=== PATIENT | female | born 1955 | race Two or more races ===

== ENCOUNTER 2025-05-12 09:29 | Outpatient (AMB) | payer OTHER, SELFPAY ==
--- NOTE | 2025-05-12 09:48 | MHC.OFFVIS ---
Vital Signs 05/12/25 09:56 Height 5 ft 7 in Weight 173 lb BMI 27.1 BP 112/68 Blood Pressure Location Rt brachial Position Sitting Respiration 16 Pulse 93 Pulse Source Pulse Oximeter Pulse Oximetry (%) 97 Oxygen Delivery Method Room Air Intake Visit Reasons: Seizure Farm Equipment Service Technician Required: Yes Farm Equipment Service Technician Name: Mckay Ryan ID: [id number] Information Interpreted: non-clinical & clinical Allergies celecoxib (From Celebrex) Allergy (Unknown, Verified 05/12/25 10:00) Unknown duloxetine Allergy (Unknown, Verified 05/12/25 10:00) Unknown metoclopramide (From Reglan) Allergy (Unknown, Verified 05/12/25 10:00) Unknown ondansetron (From Zofran) Allergy (Unknown, Verified 05/12/25 10:00) Unknown topiramate Allergy (Unknown, Verified 05/12/25 10:00) Unknown Medication List - Last Reconciled 05/12/25 by Zahra Loera, [place] aspirin 81 mg PO DAILY clonazepam 1 mg PO BID PRN diclofenac sodium 1% 1 ea topical QID fluticasone propion-salmeterol 500-50 mcg/dose (Wixela Inhub) inhalation folic acid 1 mg PO DAILY lacosamide mg PO losartan 50 mg PO DAILY metformin 500 mg PO BID montelukast 10 mg PO DAILY oxycodone 5 mg PO QID PRN rimegepant (Nurtec ODT) 75 mg PO Q OTHER DAY risperidone 4 mg PO BEDTIME simvastatin 40 mg PO BEDTIME temazepam 15 mg PO BEDTIME PRN HPI Comments Details: Jessica is a 69 year female patient with a past medical history of diabetes, migraine, possible seizures presenting to the clinic today for a follow-up visit. I have seen this patient at [facility] in the past. At the time of our visit together at [facility] in June of 2024, the reviewed her prior workup which included normal EEGs in February of 2022 and in February of 2023. She was however on Vimpat 200 mg twice daily in the plan has been to taper these medications as recommended by Dr. Brewer. 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 MRI imaging of the brain 02/16/2022 was also normal. She had seen me in June of 2024 for headache evaluation with headaches starting years ago on a daily basis described as right-sided occipital and parietal with some shoulder involvement. Headaches were associated with nausea and shaking and spots in her vision. Headaches would last over 4 hours and Nurtec was marginally effective. She was still taking the Vimpat 200 mg which has been recently decreased. Her seizure-like events were in the setting of extreme stress and during this office visit, I was able to elicit a similar response with hyperventilation. I had recommended tapering down on the lacosamide and to start a trial of topiramate 50 mg at bedtime for headache. It appeared however that she tried the topiramate which caused dizziness and it was self-discontinued. She saw Dr. Kline in January of 2025 at which time she had experienced some episodes of decreased level of awareness and CT head was negative for acute intracranial bleeding and CTA showed no large vessel occlusion or high degree of stenosis. It was determined that stroke or seizure activity were both very unlikely and that more than likely her symptoms work behavioral. She is here today to establish care. She tells me that she is here today for management of her epilepsy. She tells me that she continues to take vimpat 200mg twice daily. She tells me that she continues to have seizure episodes occurring 3 times per week but she can sometimes go 2 months without them. She describes them as shaking episodes when she bites her tongue. She is sometimes aware when she has these episodes. She also notes memory difficulty and extreme forgetfullness. She tried the topiramate but it caused dizziness and she self discontinued this medication. She continues to have daily pulsating right sided headaches to the occipital area radiating in the the neck and right shoulder. She is taking temazepam at bedtime and reports that her sleep can still be poor. She has tried flezaril in the past but this caused oversedation. Sleep: She does not believe that she has had a sleep study in the past but reports poor sleep quality and snoring. [facility] Medical History (Updated 05/12/25 @ 13:13 by Zahra Loera CNP) Osteoarthritis of knees, bilateral Seizure disorder Migraine without aura Hypertension GERD (gastroesophageal reflux disease) Fibromyalgia Chronic depression Celiac disease Asthma Anxiety Alopecia Review of Systems Const All systems reviewed & are unremarkable except as noted in HPI and below Physical Exam Const General: cooperative, healthy appearing, comfortable and no acute distress Nutritional Appearance: well nourished Orientation/consciousness: patient oriented x3 Limitations: no limitations HEENT Head: Yes normal to inspection and Yes normocephalic Eyes General: appearance normal, both eyes and all related structures Visual Maciel: normal visual maciel by confrontation Alignment and Position: alignment normal Periorbital: periorbital findings normal Eyelids: Yes eyelids normal Conjunctivae: conjunctivae normal Sclerae: sclerae normal Back/Spine/Pelvis Other: Right sided trigger point injection to the upper trapezius area. Neuro General: patient oriented x3, tone normal and deep tendon reflexes 2+ bilaterally Cranial nerves: Yes CN's II-XII intact bilaterally and Yes Facial sensation intact/muscles of mastication intact Cognition (Neuro): normal cognition Gait exam (Neuro): Normal gait present Motor exam (neuro): 5/5 motor strength present throughout and no tremor noted Sensory Exam: double simultaneous stimulation for sensation normal Romberg Test: Negative Pupils: Normal pupillary reactivity/response: bilateral Psych Appearance: grossly normal Affect: Sad affect present (tearful at times) and Animated affect present Attitude: cooperative Insight: Fair insight present (Psych) Judgement: Fair judgement present (Psych) Assessment & Plan Assessment & Plan (1) Non-epileptic convulsion: Code(s): R56.9 - Unspecified convulsions Category: Medical (2) Right-sided headache: Code(s): R51.9 - Headache, unspecified Category: Medical (3) Poor sleep: Code(s): Z72.820 - Sleep deprivation Category: Medical (4) Concern about memory: Code(s): R41.89 - Other symptoms and signs involving cognitive functions and awareness Category: Medical (5) Fatigue: Code(s): R53.83 - Other fatigue Category: Medical Plan Jessica is a 69 year female patient with a past medical history of diabetes, migraine, possible seizures presenting to the clinic today for a follow-up visit. Seizure episodes: Continues to have relatively frequent seizure-like episodes on Vimpat 200 mg twice daily. The goal in the past has been to reduce the dose as her EEGs have been normal and has been suggestive of PNES. My prior evaluation at [facility] also revealed reproduction of her symptoms with hyperventilation causing panic attack in the office. I am recommending that we dropped on the Vimpat to 100 mg twice daily to see if we can reduce some of her other symptoms including imbalance, memory concerns, and dizziness as well as fatigue. Sleep: Reports that her sleep is very poor. It is not clear whether or not she snores but she does have very fragmented sleep. I am recommending a sleep study to evaluate for TAYO which can cause changes in memory as well as fatigue. Headaches: She continues to have right-sided headaches with some obvious trigger points on exam of the right trapezius muscle. I am recommending trigger point injections as to not add to her polypharmacy/daily medication intake. The -taper down on vimpat to 100mg twice daily -sleep study in-lab -Right trapezius trigger points - PA needed Orders: Orders RT PSG in-lab sleep study Today R41.89 - Other symptoms and signs involving cognitive functions and awareness, R53.83 - Other fatigue, Z72.820 - Sleep deprivation Medications: New lacosamide 100 mg PO BID 60 tabs 5RF 30 days Coding Level of Care Code Est Pt Level 4 (30588) Diagnoses Non-epileptic convulsion R56.9 Right-sided headache R51.9 Poor sleep Z72.820 Concern about memory R41.89 Fatigue R53.83
[2025-05-12 09:56] VITALS: BP 112/68; PULSE 93; RESP 16; O2SAT 97; BMI 27.1
--- OUTSIDE RECORDS SUMMARY | 2025-05-12 17:27 | XMS_ITS | Encounter Summary ---
Author Organization [facility] Address [address] [place] [address] Care Team Providers Care Crane Helper Name Role Phone Sofi Motley MD Primary Care Provider [phone] Encounter Details Date Type Department Care Team (Late st Contact Info) Description 09/21/2020 Scanned Document [facility] Medical [facility] Rheumatology [place] [address] [facility] [address] [place] [address] Chase Coronado MD [address] [place] [id number] Social History Tobacco Use Types Packs/Day Years Used Date Smoking Tobacco: Former Cigarettes 1 20 Smokeless Tobacco: Never Alcohol Use Standard Drinks/Week Comments Not Currently 0 (1 standard drink = 0.6 oz pur e alcohol) Comments Unknown Sex and Gender Information Value Date Recorded Sex Assigned at Not on file Legal Sex Female 10:45 AM EDT Gender Identity Not on file Sexual Orientation Not on file COVID-19 Exposure Response Date Recorded In the last month, have you been in contact with someone who was confirmed or suspected to have Coronavirus / COVID-19? No / Unsure 09/21/2020 11:27 AM EDT documented as of this encounter Plan of Treatment Not on file documented as of this encounter Visit Diagnoses Not on filedocumented in this encounter Care Teams Crane Helper Relationship Specialty Start Date End Date Sofi Motley MD [address] [place] [address] PCP - General Internal Medicine 09/21/20 documented as of this encounter
--- OUTSIDE RECORDS SUMMARY | 2025-05-12 17:27 | XMS_ITS | Encounter Summary ---
Author Organization [facility] Address [address] [place] [address] Care Team Providers Care Fruit Dryer Name Role Phone Sylvie Nunez MD Primary Care Provider Sofi Motley MD Primary Care Provider Encounter Details Date Type Department Care Team ([facility] st Contact Info) Description 04/21/2019 Scanned Document GENERIC EXTERNAL DATA DEPARTMENT Sylvie Nunez MD [address] [place] [address] Social History Tobacco Use Types Packs/Day Years Used Date Smoking Tobacco: Never Smokeless Tobacco: Never Comments Unknown Sex and Gender Information Value Date Recorded Sex Assigned at Not on file Legal Sex Female 10:45 AM EDT Gender Identity Not on file Sexual Orientation Not on file documented as of this encounter Plan of Treatment Not on file documented as of this encounter Visit Diagnoses Not on filedocumented in this encounter Care Teams Fruit Dryer Relationship Specialty Start Date End Date Sylvie Nunez MD [address] [place] [address] PCP - General Internal Medicine 04/01/19 09/20/20 Sofi Motley MD [address] [place] [address] PCP - General Internal Medicine 09/21/20 documented as of this encounter
--- OUTSIDE RECORDS SUMMARY | 2025-05-12 17:27 | XMS_ITS | Encounter Summary ---
Author Organization [facility] Address [address] [place] [address] Care Team Providers Care Allergy And Immunology Specialist Name Role Phone Sylvie Nunez MD Primary Care Provider Sofi Motley MD Primary Care Provider [phone] Encounter Details Date Type Department Care Team (Late st Contact Info) Description 07/01/2020 Scanned Document GENERIC EXTERNAL DATA DEPARTMENT Sofi Motley MD [address] [place] [address] Social History Tobacco Use Types Packs/Day Years [...] have Coronavirus / COVID-19? No / Unsure 06/21/2020 10:24 AM EST documented as of this encounter Plan of Treatment Not on file documented as of this encounter Visit Diagnoses Not on filedocumented in this encounter Care Teams Allergy And Immunology Specialist Relationship Specialty Start Date End Date Sylvie Nunez MD [address] [place] [address] PCP - General Internal Medicine 04/01/19 09/20/20 Sofi Motley MD [address] [place] [address] PCP - General Internal Medicine 09/21/20 documented as of this encounter
--- OUTSIDE RECORDS SUMMARY | 2025-05-12 17:27 | XMS_ITS | Encounter Summary ---
Author Organization [facility] Address [address] [place] [address] Care Team Providers Care Iron Pourer Name Role Phone Sofi Motley MD Primary Care Provider Encounter Details Date Type Department Care Team (Late st Contact Info) Description 09/12/2021 Scanned Document GENERIC EXTERNAL DATA DEPARTMENT Lulu Middleton MD [address] [place] [id number] Social History Tobacco Use Types Packs/Day Years Used Date Smoking Tobacco: Former Cigarettes 1 20 Smokeless Tobacco: Former Alcohol Use Standard Drinks/Week Comments Not Currently 0 (1 standard drink = 0.6 oz pur e alcohol) Comments No Sex and Gender Information Value Date Recorded Sex Assigned at Not on file Legal Sex Female 10:45 AM EDT Gender Identity Not on file Sexual Orientation Not on file documented as of this encounter Plan of Treatment Not on file documented as of this encounter Visit Diagnoses Not on filedocumented in this encounter Care Teams Iron Pourer Relationship Specialty Start Date End Date Sofi Motley MD [address] [place] [address] PCP - General Internal Medicine 09/21/20 documented as of this encounter
--- OUTSIDE RECORDS SUMMARY | 2025-05-12 17:27 | XMS_ITS | Encounter Summary ---
Author Organization [facility] Address [address] [place] [address] Care Team Providers Care Etch Operator Semiconductor Wafers Name Role Phone Sofi Motley MD Primary Care Provider [phone] Encounter Details Date Type Department Care Team (Late st Contact Info) Description 09/01/2021 Scanned Document [facility] [address] [facility] [address] [place] [phone] Winston Higginbotham MD [address] [place] [address] [place] [address] Social History Tobacco Use Types Packs/Day Years [...] on file documented as of this encounter Procedures Procedure Name Priority Date/Time Associated Diagnosis Comments HX GASTROENTEROLOGY COLONOSCOPY-SCAN 09/01/2021 9:45 AM EST documented in this encounter Results * HX GASTROENTEROLOGY COLONOSCOPY-SCAN (09/01/2021 9:45 AM EST) Winston Higginbotham MD HX AMB PROCEDURES Final Result documented in this encounter Visit Diagnoses Not on filedocumented in this encounter Care Teams Etch Operator Semiconductor Wafers Relationship Specialty Start Date End Date Sofi Motley MD [address] [place] [address] PCP - General Internal Medicine 09/21/20 documented as of this encounter
--- OUTSIDE RECORDS SUMMARY | 2025-05-12 17:27 | XMS_ITS | Data Portability ---
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 Mcmahan who was available but did not see the patient HISTORY OF PRESENT ILLNESS: Delfina is a 68-year-old Martiniquais-speaking diabetic woman who is over 2 years status post ORIF of right distal fibula and syndesmosis. She has generally done well following surgery but has had some persistent numbness, swelling and pain about the right ankle. I last saw her in October 2022. An EMG was performed in July 2022. The report is somewhat confusing but describes chronic denervation changes in the right peroneus longus muscle likely related to her injury and surgery, absence of right superficial peroneal sensory nerve response either due to surgery or related to her underlying diabetes. There is no evidence of more diffuse axonal polyneuropathy. Her peroneal motor function is normal. She describes pain and swelling about the ankle. She is here today to discuss hardware removal. She denies any fevers, chills, or malaise. She had a recent fall 2 months ago and had x-rays through [facility] in late December, which were negative for fracture. I am seeing her today with a virtual seismic interpreter. Clinical update: Patient presents to clinic today for reevaluation regards to bilateral right worse than left ankle complaints. She was previously seen by Dr. Mcmahan back in January for the same concern. She was scheduled to have surgery but canceled her surgery. Because she was anxious and afraid of the intervention. Patient describes numbness and tingling to bilateral feet to light activities. She has not had any change in her numbness and tingling however states that it is uncomfortable. She is being seen by her diab PCP and controlled with oxycodone 5 mg providing limited relief. She has a past medical history of diabetes and diabetic neuropathy however she does not know her last 1 A1c. To note patient is primarily Martiniquais-speaking and the use of an deaf interpreter was utilized during this service today. Past family, medical, social history and review of systems has been reviewed and is located in the patient s chart. No interval change. She tells me her blood sugars are well controlled. PHYSICAL EXAM: Patient is in comfortably examined today alert and oriented x 3 no acute distress. She is ambulating with antalgic gait. Bilateral lower extremity exam: Patient is sitting comfortably with evidence of some mild hammering of the lesser toes noted to inspection. Patient is essentially tender to light palpation about the plantar aspect of her toes right worse than left. It appears to have symmetric sensation dorsally however some slightly subjectively change sensation plantarly. Digital range of motion is grossly intact. Neurovascular intact distally. Capillary fill is less than 3 seconds. Essentially nontender to palpation about the hardware today. On the right ankle X-RAYS: views of the bilateral feet were ordered, obtained, reviewed independently by myself today. no evidence of obvious fracture dislocation noted. They demonstrate evidence of well aligned hardware3 some mild hammering of the lesser toes. IMPRESSION: Evidence of bilateral hammertoe with evidence of questionable diabetic neuropathy. PLAN: I discussed my findings with the patient today. We discussed potential treatment options at this time. We discussed the pathophysiology of her conditions. At this time I believe most of her symptoms are associated with her neuropathy neuropathy as opposed to underlying orthopedic complaints due to the movement generalized discomfort at this time. Patient will begin rest prescription for custom diabetic shoes to help offload that as well as is referred back to her primary care for visit physician for proper pain medication management control. If she is still having discomfort after evaluation and pain management control with her PCP she is encouraged to call the office back for reevaluation. All questions and concerns were answered and addressed. autumn Not available 03/22/2024 16:44:19 06/10/2024 06/10/2024 PROBLEM: Left Kn ee Endstage Osteoarthritis HISTORY: The patient is primarily Martiniquais-speaking and seen with the benefit of the digital deaf interpreter. Patient is a 68-year-old female who presents today for evaluation of her left knee. She has noticed increasing deformity of her left knee. She states her pain level is 10 out of 10. Patient has difficulty walking and avoids stairs. She uses a cane to walk long distances. She states she can only walk about 2 blocks. The patient has had corticosteroid without benefit. She takes oxycodone 5 mg 3 times a day for pain. Patient reports difficulty walking distances. She is allergic to Celebrex. She takes Tylenol on a daily basis for symptom control. She has not recently had physical therapy. The patient states that symptoms were triggered with a fall at home in February 2022 The patient's knee symptom profile form was reviewed and is part of the medical record. The patient remains symptomatic and has had an unsuccessful history of appropriate conservative therapy (non-surgical medical management). Non-surgical medical management has been implemented for 3 months or more to assess effectiveness. Conservative treatment as clinically appropriate for the patient s current episode of care including, but not limited to, one or more of the following: anti-inflammatory medications, analgesics, flexibility and muscle strengthening exercises, supervised physical therapy (Activities of daily living (ADLs) diminished despite completing a plan of care), activity restrictions as is reasonable, assistive device use, weight reduction as appropriate, and therapeutic injections into the joint as appropriate PFMSH and ROS have been reviewed, updated, and is located in the patient s chart. PAST MEDICAL HISTORY: Past medical history is significant for asthma, chronic pain, panic attacks PAST SURGICAL HISTORY: Past surgical history includes none reported MEDICATIONS: Please see intake form. ALLERGIES: Patient reports an allergy to Celebrex, duloxetine, Zofran, Reglan, Motrin, Advil does not report an allergy to metal, latex, Iodine, tape, or adhesives. SOCIAL HISTORY: The patient states she does not work. She does not report consuming tobacco, alcohol, or illegal drugs. PHYSICAL EXAMINATION: Please see vitals recorded below Mental status: Alert and lucid. Normal insight, affect, and grooming. 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 No spasticity or clonus noted. Extremities: Calves are soft and nontender. Skin intact. Palpable pedal pulses equal bilaterally. ORTHOPEDIC EXAMINATION: Negative SLR tests bilaterally. Full ROM of both hips without pain. No trochanteric tenderness. Evaluation of knees: Left Knee range of motion is 0-110 degrees. Knee is stable to varus/valgus loading, anterior/posterior drawer testing, Carrie testing. No erythema, no redness. There is moderate sub patellar crepitus. Patient has notable valgus deformity. Peripheral vascular, lymphatic examination, skin, neurological coordination, reflexes, and sensation are within normal limits. IMAGING: X-rays ordered, obtained, and reviewed today on [facility]: Weight bearing AP of Both knees, [place] view of Both Knees, [place] View of Both Knees, and Lateral of the Left; demonstrate severe end-stage osteoarthritis of the Left knee. There is ervf-tq-exvf articulation laterally, subchondral sclerosis, osteophyte formation. There is valgus deformity and there is Moderate patellofemoral involvement. There is Kellgren Chris grade 4 osteoarthritis. IMPRESSION: Left knee end-stage osteoarthritis PLAN: I reviewed with the patient surgical and nonsurgical means to control symptoms. The patient understands that they are at potential increased risk of incomplete symptom relief. I reviewed the risks and benefits surgery with the patient in the office today. She has been very hesitant to proceed with surgical intervention. I highlighted the importance of early participation in outpatient physical therapy. Patient would like to proceed with total knee arthroplasty. We discussed potential issues with pain control. I emphasized the goal of discharge home. The patient has exhausted all conservative treatment, therapy and measures. The patient was thoroughly counseled today regarding their knee condition, its natural history and the options, both operative and non-operative. The nature of knee replacement surgery, the potential risks, benefits, and complications, the magnitude of the surgery, the intensity of postoperative recovery as well as its elective nature was explained at length today. Issues regarding lifelong infection and activity precautions were reviewed. The longevity of the implants was discussed. The patient understands the potential need for revision surgery within the next 15 years. The patient understands the potential complexity of a revision situation. A copy of my knee replacement information packet was given. The patient will require clearance from a medical doctor prior to surgery. The patient wishes to schedule an elective total knee replacement at this time. They were educated about the goal of discharge home from the hospital and given a prescription for pre-hab physical therapy. Next planned follow-up is at the history and physical. The patient knows I will be happy to meet with them at any time in order to review any additional questions or concerns that they might have. Patient was satisfied with this plan. I attempted to answer all of the patient's questions. [facility] speech recognition layout former software was used to create portions of this document. An attempt at proofreading has been made to minimize errors. Please call for corrections. Not available 06/10/2024 15:11:27 Plan of Treatment Reminders Order Date Submit Date Provider Last Modified By Organization Details Last Modified Time Details Appointments RECHECK 15 2025 03:15P Lala Zimmerman PA-C Not available Not available Not available Lab None recorded. Referral None recorded. Procedures None recorded. Surgeries None recorded. Imaging XR, knee, 4 or more view - 206, [address] views of left knee[address] Dr[address] Recinos's protocol. 2023 024 [facility] Office, [address], [address], [place], [address], 07/02/2024 11:47:50 XR, ankle, 3 or more view - new pt 3 views bilateral ankle wb rm 101 2023 024 [email or web address] [facility] Office, [address], [address], [place], [address], 04/07/2024 14:59:38 Medication Orders None recorded. Patient TargetsNo targets recorded. Patient InstructionsNo instructions recorded. Reason for Referral None Reported. Results Created Date Observation Date Name Description Value Unit Range Abnormal Flag Note LastModifiedBy Organization Detail LastModifiedTime 02/22/20 24 08/01/2022 imagi ng/di agnos tic resul t No observ ation record ed. [email or web address] Not Available 01/24 10:22:32 03/17/20 24 03/17/2024 XR, ankle , 3 or more view [email or web address] ?Encry pted=s hAaTro YD8dLq bEUv6g %2BXZw aYqtaq 0bqfl% 2Fg9IQ a4ajBk vP9nXo QUaueC m3YtLR FvZlgJ JJ8mAn HZtai3 6r0977 AC0Kqa nWEUKS hKiQtr MwF INTERFACE [facility] [address] [facility] [address] [address], [place], [address], 03/17/2024 14:05:08 03/17/20 24 03/17/2024 XR, ankle , 3 or more view [email or web address] ?Encry pted=s hAaTro YD8dLq bEUv6g %2BXZw aYqtaq 0bqfl% 2Fg9IQ a4ajBk vP9nXo QUaueC m3YtLR FvZl [facility] HZtai3 4o7603 AC0Kqa nWEUKS hKiQtr MwF INTERFACE [facility] [address] [address], [place], [address], 03/17/2024 14:05:10 06/10/20 24 06/10/2024 XR, knee, 4 or more view [email or web address] ?Encry pted=s hAaTro YD8dLq bEUv6g %2BXZw aYqtaq 0bqfl% 2Fg9IQ a4ajBk vP9nXo QUaueC m3YtLR FvZl JJ8mAn HZtai3 9k0476 AC0Kqb nmEVqq nKiQtr MwF INTERFACE [facility] [address] [facility] [address], [place], [address], 06/10/2024 14:19:56 06/10/20 24 06/10/2024 XR, knee, 4 or more view [email or web address] ?Encry pted=s hAaTro YD8dLq bEUv6g %2BXZw aYqtaq 0bqfl% 2Fg9IQ a4ajBk vP9nXo QUaueC m3YtLR FvZlJ JJ8mAn HZtai3 2w8552 AC0Kqb nmEVqq nKiQtr MwF INTERFACE [facility] Office [address] [facility] [address], [place], [address], 06/10/2024 14:19:58 Result Notes Documentation Provider Name and Address Organization Details Recorded Time Xr, Ankle, 3 Or More View : [email or web address]? Encrypted=ycZrPzkAS5rNumQ Uv6g%7SXVeuIvufn9upee%2Fg 0AVv0beDasJ4pUqSGukgTf9Wg BJZuIkwCIK6dZgTNjcr86y578 0GC3OwakHGZSCfLqYulIvU Not Available [facility] 03/17/2024 14:05: 09 Xr, Ankle, 3 Or More View : [email or web address]? Encrypted=acOiXclFU1cChaB Uv6g%9MOHgsEqvel2hmtt%2Fg 8BOb7kpVpnK8jQoXSebyHe0Qh YIEqFwzIRB5gUaZNbwo09i146 8WQ7ZylaZTNRNgUkVrnBvR Not Available [facility] 03/17/2024 14:05: 11 Xr, Knee, 4 Or More View : [email or web address]? Encrypted=mvMxYkrNH5qDezL Uv6g%6JPDkgIlirg2maem%2Fg 2IYe6hjIliO0sBdWLrbsXv0Se PXJoJarUFN6rWkQKaxv30l467 7BG5WfjvvMXnrdUsPszXcD Not Available [facility] 06/10/2024 14:19: 57 Xr, Knee, 4 Or More View : [email or web address] Encrypted=arSaHquYQ8iVftM Uv6g%2XVRquJjzpz7kwzm%2Fg 2KIf5vpBuzD7dBrHJcnoNw4Kq BXKsPxsMCB6tWhSYhcc96j511 5EG6VkxvmSTjirTmFwdNtS Not Available [facility] 06/10/2024 14:19: 58 Problems Name Problem SNOMED Code Status Onset Date Resolution Date Notes Provider Name and Address Organization Details Recorded Time No complaints 560344831 Active Status : 'A'; Not Available [facility] 4 09:25:04 Osteoarthr itis of left knee joint 7427386767864 09 Active 2023 Errol Recinos MD [address], [place], [address] , [facility] 4 12:46:16 Problem Notes None recorded. Procedures Surgical History Date Name Laterality Status Provider Name and Address Organization Details Recorded Time 5 56895 Therapeutic Exercise (1:1) cancelled Tg Martines DPT [address], [place], [address], [facility] 07/13/2024 08:12:57 5 00025: Low complexity PT Eval cancelled Tg Martines DPT [address], [place], [address], [facility] 07/13/2024 08:12:57 4 Euflexxa Knee Injection completed Gurinder Zimmerman PA-C [address], [place], [address], [facility] 03/17/2024 20:53:11 4 Euflexxa Knee Injection completed Gurinder Zimmerman PA-C [address], [place], [address], [facility] 03/10/2024 21:03:12 4 Euflexxa Knee Injection completed Gurinder Zimmerman PA-C [address], [place], [address], [facility] 03/05/2024 08:05:40 4 Knee Kenalog 40mg 2cc Injection, L/R completed Gurinder Zimmerman PA-C [address], [place], [address], [place] [facility] 11/01/2023 11:15:10 Imaging Results None recorded. Procedure Notes None recorded. Medical Equipment None Reported. Allergies Allergen ID Allergen Name Allergen Category Reaction Reaction Severity Criticality Documentation Date Start Date Code Code System Note Provider Name and Address Organization Details Recorded Time 86875 meloxicam medicatio n Not available Not available Not available 08/26/20232021 54583 RxNorm Not Available [facility] 11:53:30 06588 Reglan medicatio n Not available Not available Not available 08/26/20232021 9230 RxNorm Not Available [facility] 11:53:30 Medications Name Sig Start Date Stop Date Status Note LastModified by Organization Details LastModified Time freestyle 28g lancets active Not Available Not Available Not Available freestyle lite test strips active Not Available Not Available Not Available losartan 50 mg tablet TOME EDDA TABLETA TODOS LOS D active Not Available Not Available No t Available amoxicillin 500 mg capsule TOME 1 C PSULA POR V A ORAL CADA OCHO HORAS POR 5 D HASTA QUE SE TERMINE active Not Available Not Available No t Available metformin 500 mg tablet TOME EDDA TABLETA TODOS LOS D active Not Available Not Available No t Available azelastine 0.05 % eye drops PONGA EDDA GOTA EN LOS DOS OJOS DOS VECES AL D A CUANDO SEA NECESARIO active Not Available Not Available No t Available prednisone 10 mg tablet active Not Available Not Available Not Available Estring 2 mg (7.5 mcg/24 hour) vaginal ring active Not Available Not Available Not Available ketoconazol e 2 % shampoo active Not Available Not Available Not Available albuterol sulfate 2.5 mg/3 mL (0.083 %) solution for nebulizatio n INHALE THE CONTENTS OF 1 VIAL VIA NEBULIZER CADA SEIS HORAS active Not Available Not Available No t Available ammonium lactate 12 % lotion active Not Available Not Available Not Available fluconazole 150 mg tablet TAKE 1 TABLET ORALLY ONCE,REPE AT DOSE IF STILL HAVING SYMPTOMS IN 72 HOURS active Not Available Not Available No t Available ketotifen 0.025 % (0.035 %) eye drops active Not Available Not Available No t Available risperidone 4 mg tablet active Not Available Not Available Not Available cephalexin 250 mg capsule MARIA TERESA 1 CAPSULA POR LA BOCA CUATRO VECES AL CESARIO POR 5 HUTCHINS active Not Available Not Available No t Available tretinoin 0.025 % topical cream active Not Available Not Available Not Available hydrocortis one 1 % topical ointment APPLY TOPICALLY 2 TIMES A DAY FOR HEMORRHOI DS active Not Available Not Available No t Available prochlorper azine maleate 5 mg tablet active Not Available Not Available No t Available sucralfate 1 gram tablet TOME EDDA TABLETA DOS VECES AL D A active Not Available Not Available No t Available FreeStyle Lancets 28 gauge active Not Available Not Available Not Available polyvinyl alcohol 1.4 % eye drops INSTILL 1 DROP IN BOTH EYES 2 TIMES A DAY NEEDED FOR DRY EYES active Not Available Not Available No t Available prednisone 20 mg tablet active Not Available Not Available Not Available clonazepam 1 mg tablet TOME EDDA TABLETA DOS VECES AL D A active Not Available Not Available No t Available clobetasol 0.05 % topical cream APPLY TO SCALP DOS VECES AL D A active Not Available Not Available No t Available acyclovir 400 mg tablet active Not Available Not Available Not Available sulfamethox azole 800 mg-trimetho prim 160 mg tablet active Not Available Not Available Not Available minoxidil 2.5 mg tablet TOME EDDA TABLETA TODOS LOS D active Not Available Not Available No t Available aspirin 81 mg tablet,yisel yed release TOME EDDA TABLETA TODOS LOS D active Not Available Not Available No t Available risperidone 3 mg tablet active Not Available Not Available Not Available triamcinolo ne acetonide 0.1 % topical cream APLIQUE AL NARAYAN AFECTADA DOS VECES AL D A FOR 14 DAYS active Not Available Not Available No t Available amoxicillin 500 mg tablet active Not Available Not Available Not Available simvastatin 40 mg tablet TOME EDDA TABLETA TODOS LOS D AL ACOSTARSE active Not Available Not Available No t Available ketorolac 0.5 % eye drops active Not Available Not Available Not Available risperidone 2 mg tablet TOME EDDA TABLETA TODOS LOS D AT NIGHT active Not Available Not Available No t Available prednisolon e acetate 1 % eye drops,suspe nsion active Not Available Not Available Not Available temazepam 15 mg capsule active Not Available Not Available Not Available triamcinolo ne acetonide 0.025 % topical cream active Not Available Not Available Not Available temazepam 30 mg capsule TOME EDDA C PSULA TODOS LOS D AL ACOSTARSE CUANDO SEA NECESARIO active Not Available Not Available No t Available phenazopyri dine 100 mg tablet active Not Available Not Available Not Available benzonatate 100 mg capsule active Not Available Not Available Not Available cephalexin 500 mg capsule TOME 1 C PSULA POR V A ORAL CUATRO VECES AL D A FOR 7 DAYS active Not Available Not Available No t Available pantoprazol e 40 mg tablet,yisel yed release TOME EDDA TABLETA POR V A ORAL DOS VECES AL D A active Not Available Not Available No t Available tacrolimus 0.1 % topical ointment active Not Available Not Available Not Available Advair Diskus 500 mcg-50 mcg/dose powder for inhalation INHALE UN SOPLIDO POR V A ORAL DOS VECES AL D A RINSE MOUTH AND THROAT AFTER EACH USE active Not Available Not Available No t Available folic acid 1 mg tablet active Not Available Not Available Not Available montelukast 10 mg tablet TOME EDDA TABLETA TODOS LOS D active Not Available Not Available No t Available ammonium lactate 12 % topical cream active Not Available Not Available Not Available zaleplon 10 mg capsule active Not Available Not Available N ot Available gabapentin 100 mg capsule active Not Available Not Available Not Available ibuprofen 600 mg tablet TAKE 1 TABLET BY MOUTH EVERY 6 HOURS FOR 14 DAYS ALTERN ATE EVERY 6 HRS WITH TYLENOL active Not Available Not Available No t Available polyethylen e glycol 3350 17 gram/dose oral powder active Not Available Not Available Not Available methylpredn isolone 4 mg tablets in a dose pack active Not Available Not Available Not Available celecoxib 100 mg capsule active Not Available Not Available Not Available ketoconazol e 2 % topical cream active Not Available Not Available Not Available fluocinonid e 0.05 % topical cream APPLY TO SCALP DOS VECES AL D A active Not Available Not Available No t Available fluticasone propionate 50 mcg/actuati on nasal spray,suspe nsion USE 1 SPRAY IN EACH NOSTRIL CADA MA KELLY active Not Available Not Available No t Available clotrimazol e 1 % topical cream active Not Available Not Available Not Available loratadine 10 mg tablet TOME EDDA TABLETA POR V A ORAL TODOS LOS D CUANDO SEA NECESARIO FOR ALLERGY SYMPTOMS active Not Available Not Available No t Available mometasone 0.1 % topical cream APLIQUE A LA PIEL EL NARAYAN AFECTADA OF SKIN DOS VECES AL D A FOR 14 DAYS active Not Available Not Available No t Available amoxicillin 875 mg-potassiu m clavulanate 125 mg tablet active Not Available Not Available Not Available Ventolin HFA 90 mcg/actuati on aerosol inhaler INHALE 2 PUFFS INHALATIO N EVERY 6 HOURS active Not Available Not Available No t Available oxycodone 5 mg tablet TOME EDDA TABLETA POR V A ORAL DOS VECES AL D A POR 28 HUTCHINS. active Not Available Not Available No t Available Premarin 0.625 mg/gram vaginal cream active Not Available Not Available Not Available Senna Plus 8.6 mg-50 mg tablet active Not Available Not Available No t Available nitrofurant oin monohydrate /macrocryst als 100 mg capsule active Not Available Not Available Not Available eszopiclone 1 mg tablet active Not Available Not Available Not Available Pain Relief Extra Strength (acetaminop hen) 500 mg tablet PLEASE SEE ATTACHED FOR DETAILED DIRECTION S active Not Available Not Available No t Available brimonidine 0.1 % eye drops active Not Available Not Available Not Available chlorhexidi ne gluconate 0.12 % mouthwash USE A MOUTHWASH 3 TO 4 TIMES A DAY A MOUTHWASH . SPIT OUT EXCESS,DO NT SWALLOW. active Not Available Not Available No t Available temazepam Temazepam 30MG Capsule 2022 active Statu s: 'Curr ent'; Not Available Not Available Not Available FreeStyle Lite Meter kit active Not Available Not Available Not Available FreeStyle Lite Strips active Not Available Not Available Not Available oxycodone 10 mg tablet TAKE 1/2 TABLET POR V A ORAL TWICE DAILY active Not Available Not Available No t Available diclofenac 1 % topical gel APPLY TOPICALLY 4 TIMES DAILY NEEDED FOR JOINT PAIN active Not Available Not Available No t Available oxycodone HCl-oxycodo ne-ASA 1 every 4 - [address] WHILE TAKING THIS MEDICATIO N 06/06 completed Statu s: 'Disc ontin ued'; Not Available Not Available Not Available lacosamide 200 mg tablet TOME EDDA TABLETA DOS VECES AL D A active Not Available Not Available No t Available lacosamide 50 mg tablet active Not Available Not Available Not Available lacosamide 100 mg tablet active Not Available Not Available Not Available Myrbetriq 50 mg tablet,exte nded release active Not Available Not Available Not Available Linzess 290 mcg capsule active Not Available Not Available Not Available Hemorrhoida l(phenyleph -min oil-petrola t)0.25 %-14 %-74.9 % rectal oint active Not Available Not Available Not Available Belsomra 5 mg tablet active Not Available Not Available No t Available GenTeal Tears Moderate 0.1 %-0.3 %-0.2 % eye drops active Not Available Not Available Not Available Trulance 3 mg tablet TOME EDDA TABLETA TODOS LOS D active Not Available Not Available No t Available Trelegy Ellipta Trelegy Ellipta 200-62.5- 25MCG/INH Aerosol Powder Breath Activated 2021 active Statu s: 'Curr ent'; Not Available Not Available Not Available Medi-Pads 50 % topical pads active Not Available Not Available Not Available Nurtec ODT 75 mg disintegrat ing tablet active Not Available Not Available N ot Available Gemtesa 75 mg tablet active Not Available Not Available No t Available Vitals Date Recorded Body height Body mass index (BMI) Body weight Provider Name and Address Organization Details Last Updated DateTime 03/05/2024 170.18 cm 26.9 kg/m2 42307.89 g Guerrero Qiu [facility] 03/05/2024 13:34:49 Date Recorded Body height Body mass index (BMI) Body weight Provider Name and Address Organization Details Last Updated DateTime 03/11/2024 170.18 cm 26.9 kg/m2 65983.89 g Guerrero Qiu [facility] 03/11/2024 13:59:42 Date Recorded Body height Body mass index (BMI) Body weight Provider Name and Address Organization Details Last Updated DateTime 03/17/2024 170.18 cm 26.9 kg/m2 71606.89 g Irene Fatima [facility] 03/17/2024 13:58:22 Date Recorded Body height Body mass index (BMI) Body weight Provider Name and Address Organization Details Last Updated DateTime 03/18/2024 170.18 cm 26.9 kg/m2 78151.89 g Gurinder Zimmerman PA-C [address], [place], [address], [place] [facility] 03/18/2024 09:44:01 Date Recorded Body height Body mass index (BMI) Body weight Provider Name and Address Organization Details Last Updated DateTime 06/10/2024 165.1 cm 28.9 kg/m2 00906.35 g Tez Mancia [facility] 06/10/2024 14:02:09 Social History None recorded. Functional Status None recorded. Mental Status None recorded. Family History Nothing Reported. Medical History No medical history recorded. Gynecological HistoryNo gynecological history recorded. Obstetrics History GPAL:G 0 P 0 0 0 0 Past Encounters Encounter ID Performer Location Encounter Start Date Encounter Closed Date Diagnosis/Indication Diagnosis SNOMED-CT Code Diagnosis ICD10 Code Diagnosis IMO Codes Diagnosis Note [id number] Gurinder Zimmerman PA-C [facility] [address] [place] [address] 11/01/2023 10:44:23 11/01/2023 11:17:42 Pain of left knee joint 5278794282 57224 M25.562 Osteoarthr itis of left knee joint 0202216304 46626 M17.12 [id number] Fernando Mcmahan MD [facility] [address] [place] [place] [address] 02/06/2024 12:09:37 03/03/2024 10:42:43 Pain associated with internal prosthetic device 231937344 T84.84XA Follow-up orthopedic assessment 147162457 Z47.89 [id number] CHIOMA Galvez [address] [place] [address] 03/05/2024 13:12:11 03/05/2024 15:05:53 Osteoarthritis of left knee joint 1743191614 25210 M17.12 [id number] CHIOMA Galvez [address] [place] [address] 03/11/2024 13:47:47 03/11/2024 16:12:09 Osteoarthritis of left knee joint 2553579813 59895 M17.12 [id number] CHIOMA Johnson [address] [place] [address] 03/17/2024 13:08:28 04/07/2024 14:59:38 Bilateral ankle joint pain 4424337841 4979898 M25.571 M25.573 [id number] CHIOMA Galvez [address] [place] [address] 03/18/2024 09:39:54 04/08/2024 08:32:33 Osteoarthritis of left knee joint 2041872867 71386 M17.12 [id number] MD Jaime Stockton [address] [place] [address] 06/10/2024 13:23:03 07/02/2024 11:47:49 Osteoarthritis of left knee joint 9551049629 29707 M17.12 [id number] Health Concerns Section Related Observation LastModified by Organization Detai ls LastModified Time None Recorded Concern Status LastModified by Organization Details LastModified Time None Recorded Advance Directives Directive None Recorded Payers Insurance Date Sequence Insurance Name Policy Number Policy Arredondo Covered Member ID Arredondo Member ID Guarantor Name 03/04/2024 1 [place] [employer] Delfina Hewitt [id number] Delfina Andrade 03/04/2024 1 [place] [facility] Delfina Hewitt [id number] Delfina Andrade 07/27/2024 1 [facility] - DOS ON OR AFTER 2022 - ONE CARE (MEDICARE REPLACEMENT/AD VANTAGE - HMO) Delfina Hewitt [id number] Delfina Andrade OBGyn Episode No OBEpisode recorded.
--- OUTSIDE RECORDS SUMMARY | 2025-05-12 17:27 | XMS_ITS | Encounter Summary ---
Author Organization [facility] Address [address] [place] [address] Care Team Providers Care Mailhouse Operator Name Role Phone Sofi Motley MD Primary Care Provider [phone] Encounter Details Date Type Department Care Team (Late st Contact Info) Description 11/11/2020 Scanned Document GENERIC EXTERNAL DATA DEPARTMENT Lulu Middleton MD [address] [place] [address] Social History Tobacco Use Types Packs/Day Years [...] have Coronavirus / COVID-19? No / Unsure 11/07/2020 8:32 AM EDT documented as of this encounter Plan of Treatment Not on file documented as of this encounter Visit Diagnoses Not on filedocumented in this encounter Care Teams Mailhouse Operator Relationship Specialty Start Date End Date Sofi Motley MD [address] [place] [address] PCP - General Internal Medicine 09/21/20 documented as of this encounter
--- OUTSIDE RECORDS SUMMARY | 2025-05-12 17:27 | XMS_ITS | Encounter Summary ---
Author Organization [facility] Address [address] [place] [address] Care Team Providers Care Lands Resource Manager Name Role Phone Sofi Motley MD Primary Care Provider [phone] Encounter Details Date Type Department Care Team (Late st Contact Info) Description 11/03/2020 Scanned Document [facility] [address] [address] Provider, Generic External Data Social History Tobacco Use Types Packs/Day Years [...] on filedocumented in this encounter Care Teams Lands Resource Manager Relationship Specialty Start Date End Date Sofi Motley MD [address] [place] [address] PCP - General Internal Medicine 09/21/20 documented as of this encounter
--- OUTSIDE RECORDS SUMMARY | 2025-05-12 17:27 | XMS_ITS | Clinical Summary ---
Author Organization [facility] Address [address] [place] [address] Care Team Providers Care Shuttle Fixer Name Role Phone Sofi Motley MD Primary Care Provider [phone] Allergies Active Allergy Reactions Criticality Noted Date Comments Metoclopramide Other (See Comments) 07/22/2020 Tremor Medications Fluticasone-Salmet elis (ADVAIR HFA IN) Inhale. Active aspirin enteric coated (ECOTRIN LOW STRENGTH) 81 MG EC tablet Take 81 mg by mouth daily. Active doxepin (SINEquan) 50 MG capsule Take 50 mg by mouth nightly. Active fluticasone (FloVENT DISKUS) 50 MCG/BLIST diskus inhaler Inhale 1 puff 2 (two) times a day. Active folic acid (FOLVITE) 1 MG tablet Take 1 mg by mouth daily. Active loratadine (CLARITIN) 10 MG tablet Take 10 mg by mouth daily. Active methotrexate (RHEUMATREX) 2.5 MG tablet Take by mouth once a week Verify any order for freqs more than 3x per week. Active temazepam (RESTORIL) 30 MG capsule Take 30 mg by mouth nightly as needed for sleep. Active simvastatin (ZOCOR) 40 MG tablet Take 40 mg by mouth nightly. Active lacosamide (VIMPAT) 100 MG Tab tablet Take 200 mg by mouth 2 (two) times a day. Active clonazePAM (KlonoPIN) 1 MG tablet TK 1 T PO QAM PRN 11/27/19 20 Active potassium chloride (KLOR-CON M20) 20 MEQ tablet TK 1 T PO QD WF FOR 5 DAYS 02/23/20 20 Active Nebulizers (DeVilbiss Pulmo-Aide) Device See admin instructions. 02/03/20 20 Active Lancets (OneTouch Delica Plus [id number]) Misc TEST BLOOD SUGAR TID. 04/11/20 Active OneTouch Ultra test strip TEST TID 04/11/20 Active benzonatate (TESSALON) 100 MG capsule TK 1 C PO TID PRN 04/21/20 Active albuterol (PROVENTIL) (0.083%) 2.5 mg/3 mL nebulizer solution VVN Q 8 H PRN. 04/21/20 Active albuterol (PROVENTIL HFA; VENTOLIN HFA) 108 (90 Base) MCG/ACT inhaler INHALE 2 PUFFS PRN Q 4 H 04/11/20 Active levETIRAcetam (KEPPRA) 1000 MG tablet TK 1 T PO BEFORE BEDTIME 02/26/20 Active hyoscyamine (LEVSIN) 0.125 MG tabletIndications: Abdominal cramps TAKE 1 TABLET(0.125 MG) BY MOUTH EVERY 4 HOURS NEEDED FOR CRAMPING 30 tablet 1 05/11/20 Active risperiDONE (RisperDAL) 3 MG tablet TK 1 T PO QD 05/10/20 Active Wixela Inhub 500-50 MCG/DOSE diskus inhaler INL 1 PUFF PO BID 05/12/20 Active triamcinolone (KENALOG) 0.5 % cream Apply topically daily. 05/31/20 Active montelukast (SINGULAIR) 10 MG tablet TK 1 T PO QD 05/10/20 Active metFORMIN (GLUCOPHAGE) 500 MG tablet Take 500 mg by mouth 2 (two) times a day with meals. 05/31/20 Active Proctozone-HC 2.5 % rectal cream APPLY EXTERNALLY TO THE AFFECTED AREA TWICE DAILY FOR 7 DAYS 05/31/20 Active Breo Ellipta 200-25 MCG/INH inhaler INL 1 PUFF PO QD. 05/24/20 Active fluconazole (diFLUcan) 150 MG tablet TAKE 1 TABLET BY MOUTH EVERY DAY ONCE. 05/31/20 Active butalbital-acetami nophen-caffeine (FioriCET) 50-300-40 mg Cap capsule TK 1 C PO BID FOR 5 DAYS PRN 05/10/20 20 Active betamethasone dipropionate augmented (DIPROLENE-AF) 0.05 % cream LEONARDO EXT AA QD FOR 10 DAYS 05/06/20 Active Vimpat 200 MG Tab tablet Take 200 mg by mouth 2 (two) times a day. 07/12/19 Active atenolol (TENORMIN) 25 MG tablet Take 25 mg by mouth daily. 07/01/19 Active ondansetron (ZOFRAN-ODT) 4 MG disintegrating tabletIndications: Non-intractable vomiting with nausea, unspecified vomiting type Take 1 tablet (4 mg total) by mouth 3 times daily (every 8 hours) as needed for nausea or vomiting. Place tablet on tongue to dissolve. 20 tablet 1 07/22/19 Active nitroglycerin (NITROSTAT) 0.4 MG SL tablet ONE TABLET UNDER TONGUE NEEDED FOR CHEST PAIN 08/05/19 Active azelastine (OPTIVAR) 0.05 % ophthalmic solution 08/11/19 Active meloxicam (MOBIC) 15 MG tabletIndications: Primary osteoarthritis involving multiple joints Take 1 tablet (15 mg total) by mouth daily. 30 tablet 12 11/08/19 Active rifAXimin (XIFAXAN) 550 MG tabletIndications: Bloating Take 1 tablet (550 mg total) by mouth 3 (three) times a day in the morning, mid-day and early evening. 42 tablet 01/21/20 21 Active linaclotide (LINZESS) 290 MCG Cap capsuleIndications :Constipation by delayed colonic transit Take 1 capsule (290 mcg total) by mouth every morning before breakfast. 90 capsule 3 02/04/20 21 Active sucralfate (CARAFATE) 1 g tabletIndications: Dyspepsia TAKE 1 TABLET BY MOUTH EVERY 6 HOURS NEEDED. 450 tablet 1 05/22/20 21 Active ndqlmo-ocdxpiaff-i agnesium sulfates (Suprep Bowel Prep Kit) 17.5-3.13-1.6 GM/177ML Solution solutionIndication s:Family history of colon cancer Empty 177 mL bottle into cup, fill to line with water and drink it with additional water . Repeat 6 hr prior to colonoscopy 2 each 07/25/19 Active PANTOprazole (PROTONIX) 40 MG EC tabletIndications: Gastroesophageal reflux disease without esophagitis Take 1 tablet (40 mg total) by mouth daily. 90 tablet 3 09/02/19 22 Active Active Problems Problem Noted Date Diagnosed Date Rheumatoid arthritis involving multiple sites Fibromyalgia 09/22/2020 Primary osteoarthritis involving multiple joints 09/22/2020 Chronic pain syndrome 09/22/2020 Immunizations Immunization Administration Dates Next Due Influenza Inactivated/Split Preservative Free IM 03/28/2020 Family History Medical History Relation Name Comments Cancer, colon Brother Prostate cancer Father Cancer, other Mother Relation Name Status Comments Brother Father Mother Social History Tobacco Use Types Packs/Day Years [...] on file Sexual Orientation Not on file Last Filed Vital Signs Vital Sign Reading Time Taken Comments Blood Pressure 116/72 07/25/2021 9:16 AM EST Pulse 99 07/25/2021 9:16 AM EST Temperature 37 C (98.6 F) 07/25/2021 9:16 AM EST Respiratory Rate 20 04/06/2017 10:47 AM EDT Oxygen Saturation 98% 07/25/2021 9:16 AM EST Inhaled Oxygen Concentration - - Weight 78.5 kg (173 lb) 07/25/2021 9:16 AM EST Height 170.2 cm (5' 7 ) 07/25/2021 9:16 AM EST Body Mass Index 27.1 07/25/2021 9:16 AM EST Plan of Treatment Health Maintenance Due Date Last Done Comments Advance Care Planning 1955 DTaP/Tdap/Td Vaccines (1 - Tdap) 1976 Pneumococcal Vaccines 50+ (1 of 2 - PCV) 1976 Zoster (Shingles) Vaccine (1 of 2) 1976 Mammogram 1997 RSV Vaccine 50 years and older and Patients (1 - Risk 50-74 years 1-dose series) 10/25/2007 COVID-19 Vaccine (3 - Modern a risk series) 10/14/2020 09/16/2020, 08/19/2020 DXA Bone Density (Females,Ages 65 and older) 2022 Influenza Vaccine 01/22/2025 03/28/2020 Colonoscopy 09/02/2031 09/01/2021 Hepatitis C Virus Screening Completed 10/03/2020 Hepatitis B Vaccines Aged Out No long er eligible based on patient's age to complete this topic Procedures Procedure Name Priority Date/Time Associated Diagnosis Comments HX GASTROENTEROLOGY COLONOSCOPY-SCAN 09/01/2021 9:45 AM EST HEPATITIS C VIRUS (HCV) ANTIBODY Routine 10/03/2020 Rheumatoid arthritis involving multiple sites, unspecified whether rheumatoid factor present (HCC) from Last 3 Months or Most Recently Relevant to Health Maintenance Results * HX GASTROENTEROLOGY COLONOSCOPY-SCAN (09/01/2021 9:45 AM EST) us Winston Higginbotham MD HX AMB PROCEDURES Final Result * Hepatitis C Virus (HCV) Antibody (10/03/2020) Blood specimen (specimen) Blood specimen / Unknown 10/03/2020 us Collin Townsend MD LAB BLOOD ORDERABLES Final Res ult [facility] from Last 3 Months or Most Recently Relevant to Health Maintenance [place] [address] [place] [phone] Care Teams Shuttle Fixer Relationship Specialty Start Date End Date Sofi Motley MD [address] [place] [address] PCP - General Internal Medicine 09/21/20
--- OUTSIDE RECORDS SUMMARY | 2025-05-12 17:27 | XMS_ITS | Clinical Summary ---
Author Organization [facility] it Address [address] [place] [address] Care Team Providers Care Lumber Press Operator Name Role Phone Unavailable Primary Care Provider Unavailabl e Social History Tobacco Use Types Packs/Day Years Used Date Smoking Tobacco: Never Assessed Comments Unknown Sex and Gender Information Value Date Recorded Sex Assigned at Not on file Legal Sex Female 3:10 PM EST Gender Identity Not on file Sexual Orientation Not on file Plan of Treatment Health Maintenance Due Date Last Done Comments Breast Cancer Screening 1955 Colorectal Cancer Screening: Colonoscopy 1955 DTaP,Tdap,and Td Vaccines (1 - Tdap) 1976 Pneumococcal Vaccine: 50+ Ye ars (1 of 1 - PCV) 10/25/2007 Zoster Vaccines (1 of 2) 10/25/2007 Hepatitis C Screening 05/23/2022 Osteoporosis Screening (Bone Density Screening) 05/23/2022 Social Influencers of Health Screening 05/23/2022 Falls Risk Assessment 2022 Depression Screening 06/24/2024 COVID-19 Vaccine (1 - 2024-2 6 season) 2025 Influenza Vaccine (#1) 2025 RSV Immunization Adult Patie nts (1 - 1-dose 75+ series) 2032 HIB Vaccines Aged Out No longer eligi ble based on patient's age to complete this topic HPV Vaccines Aged Out No longer eligi ble based on patient's age to complete this topic Hepatitis A Vaccines Aged Out No long er eligible based on patient's age to complete this topic Hepatitis B Vaccines Aged Out No long er eligible based on patient's age to complete this topic IPV Vaccines Aged Out No longer eligi ble based on patient's age to complete this topic MMR Vaccines Aged Out No longer eligi ble based on patient's age to complete this topic Meningococcal ACWY Vaccine Aged Out N o longer eligible based on patient's age to complete this topic Meningococcal B Vaccine Aged Out No l onger eligible based on patient's age to complete this topic RSV Immunization Patients Un dee 20 months Aged Out No longer eligible b ased on patient's age to complete this topic Varicella Vaccines Aged Out No longer eligible based on patient's age to complete this topic
--- OUTSIDE RECORDS SUMMARY | 2025-05-12 17:27 | XMS_ITS | Encounter Summary ---
Author Organization [facility] Address [address] [place] [address] Care Team Providers Care Transportation Logistics Internship Name Role Phone Sofi Motley MD Primary Care Provider [phone] Encounter Details Date Type Department Care Team (Late st Contact Info) Description 06/02/2021 Scanned Document [facility] [address] [facility] [address] [place] [address] Winston Higginbotham MD [address] [place] [address] [place] [address] Social History Tobacco Use Types Packs/Day Years [...] Priority Date/Time Associated Diagnosis Comments HX GASTROENTEROLOGY UPPER ENDOSCOPY-SCAN 06/02/2021 12:00 PM EST documented in this encounter Results * HX GASTROENTEROLOGY UPPER ENDOSCOPY-SCAN (06/02/2021 12:00 PM EST) Winston Higginbotham MD HX AMB PROCEDURES Final Result documented in this encounter Visit Diagnoses Not on filedocumented in this encounter Care Teams Transportation Logistics Internship Relationship Specialty Start Date End Date Sofi Motley MD [address] [place] [address] PCP - General Internal Medicine 09/21/20 documented as of this encounter
--- OUTSIDE RECORDS SUMMARY | 2025-05-12 17:27 | XMS_ITS | Encounter Summary ---
Author Organization [facility] Address [address] [place] [address] Care Team Providers Care Events Assistant Name Role Phone Sofi Motley MD Primary Care Provider Encounter Details Date Type Department Care Team (Late st Contact Info) Description 09/21/2020 Scanned Document [facility] Medical [facility] Rheumatology [place] [address] [facility] [address] [place] [address] Chase Coronado MD [address] [place] [address] Social History Tobacco Use Types Packs/Day Years [...] on filedocumented in this encounter Care Teams Events Assistant Relationship Specialty Start Date End Date Sofi Motley MD [address] [place] [address] PCP - General Internal Medicine 09/21/20 documented as of this encounter
--- OUTSIDE RECORDS SUMMARY | 2025-05-12 17:27 | XMS_ITS | Clinical Summary ---
Author Organization [facility] Address [address] [place], [place] [id number] Phone Care Team Providers Care Club Steward Name Role Phone Sylvie Nunez MD Primary Care Provider Unavailable Allergies No known active allergies Medications lacosamide (VIMPAT ORAL) Take by mouth. A ctive clonazepam (KLONOPIN ORAL) Take by mouth. Activ e metformin HCl (METFORMIN, BULK, MISC) by Miscellaneous route. Active METHOTREXATE, BULK, MISC by Miscellaneous route. Active Social History Tobacco Use Types Packs/Day Years Used Date Smoking Tobacco: Never Assessed Education Answer Date Recorded Are you interested in more education? Not on carlos e 10/19/2022 Are you concerned about learning? Not on file 10/19/2022 No 10/19/2022 No 10/19/2022 Digital Access Answer Date Recorded No 11/20/2022 No 11/20/2022 No 11/20/2022 Reliable internet access at home? Not on file 11/20/2022 Device with a working camera? Not on file Comments Unknown Sex and Gender Information Value Date Recorded Sex Assigned at Female 05/03/2019 3:41 PM EST Legal Sex Female 3:36 PM EST Gender Identity Female 05/03/2019 3:41 PM EST Sexual Orientation Not on file Last Filed Vital Signs Vital Sign Reading Time Taken Comments Blood Pressure 129/82 05/03/2019 6:40 PM EST Pulse 95 05/03/2019 6:40 PM EST Temperature 36.7 C (98.1 F) 05/03/2019 3:38 PM EST Respiratory Rate 20 05/03/2019 6:40 PM EST Oxygen Saturation 95% 05/03/2019 6:40 PM EST Inhaled Oxygen Concentration - - Weight 72.6 kg (160 lb) 05/03/2019 3:38 PM EST Height 170.2 cm (5' 7 ) 05/03/2019 3:38 PM EST Body Mass Index 25.06 05/03/2019 3:38 PM EST Plan of Treatment Not on file Medical Devices Not on file Insurance MEDICAID MEDICAID MEDICAID MEDICAID MEDICAID MEDICAID MEDICAID MEDICAID MEDICAID Member Subscriber Plan / Payer (Ef fective 2019-Present) Name:Delfina Beltran Relation to Subscriber:Self Name:Delfina Beltran Payer ID:Not on file Group ID:Not on file Type:Medicaid Address: [facility] [address] [id number] Care Teams Club Steward Relationship Specialty Start Date End Date Sylvie Nunez MD PCP - General 05/03/19 Additional Source Comments The information contained in this document represents components of the legal health record. It is not the complete legal health record.[facility]
--- OUTSIDE RECORDS SUMMARY | 2025-05-12 17:27 | XMS_ITS | Encounter Summary ---
Author Organization [facility] Address [address] [place] [address] Care Team Providers Care Brake Operator Name Role Phone Sofi Motley MD Primary Care Provider Encounter Details Date Type Department Care Team (Late st Contact Info) Description 09/21/2020 Scanned Document [facility] Medical [facility] Rheumatology [place] [address] [facility] [address] [place] [address] Chase Coronado MD [address] [place] [address] Social History Tobacco Use Types Packs/Day Years [...] on filedocumented in this encounter Care Teams Brake Operator Relationship Specialty Start Date End Date Sofi Motley MD [address] [place] [address] PCP - General Internal Medicine 09/21/20 documented as of this encounter
--- OUTSIDE RECORDS SUMMARY | 2025-05-12 17:27 | XMS_ITS | Encounter Summary ---
Author Organization [facility] Address [address] [place] [address] Care Team Providers Care Hydrochloric Acid Operator Name Role Phone Sofi Motley MD Primary Care Provider [phone] Encounter Details Date Type Department Care Team (Late st Contact Info) Description 04/17/2021 Scanned Document GENERIC EXTERNAL DATA DEPARTMENT Sofi Motley MD [address] [place] [address] Social History Tobacco Use Types Packs/Day Years [...] have Coronavirus / COVID-19? No / Unsure 04/06/2021 8:36 AM EDT documented as of this encounter Plan of Treatment Not on file documented as of this encounter Visit Diagnoses Not on filedocumented in this encounter Care Teams Hydrochloric Acid Operator Relationship Specialty Start Date End Date Sofi Motley MD [address] [place] [address] PCP - General Internal Medicine 09/21/20 documented as of this encounter
== END 2025-05-12 10:40 | disposition home or self-care (01) ==
LOC: HO.HSM 09:29
PROVIDERS: Visit Provider Nurse Practitioner
DX: R56.9 Unspecified convulsions (principal); R51.9 Headache, unspecified; Z72.820 Sleep deprivation; R41.89 Other symptoms and signs involving cognitive functions and awareness; R53.83 Other fatigue
CPT/HCPCS: 99214

== ENCOUNTER → 2025-05-12 09:29 | Outpatient (BNVA) | payer OTHER, SELFPAY | PROVIDERS: Visit Provider Nurse Practitioner | DX: R56.9 Unspecified convulsions (principal); R51.9 Headache, unspecified; R41.89 Other symptoms and signs involving cognitive functions and awareness; R53.83 Other fatigue; Z72.820 Sleep deprivation | CPT/HCPCS: 99212 ==

== ENCOUNTER 2025-05-17 09:50 | Outpatient (AMB) | payer OTHER, SELFPAY ==
--- NOTE | 2025-05-17 10:22 | MHC.OFFVIS ---
Vital Signs 05/17/25 10:26 Height 5 ft 7 in Weight 173 lb BMI 27.1 BP 112/70 Blood Pressure Location Rt brachial Position Sitting Respiration 16 Pulse 83 Pulse Source Pulse Oximeter Pulse Oximetry (%) 100 Oxygen Delivery Method Room Air Intake Visit Reasons: Trigger point Mold Carrier Required: Yes Allergies celecoxib (From Celebrex) Allergy (Unknown, Verified 05/17/25 10:27) Unknown duloxetine Allergy (Unknown, Verified 05/17/25 10:27) Unknown metoclopramide (From Reglan) Allergy (Unknown, Verified 05/17/25 10:27) Unknown ondansetron (From Zofran) Allergy (Unknown, Verified 05/17/25 10:27) Unknown topiramate Allergy (Unknown, Verified 05/17/25 10:27) Unknown HPI Comments Details: Delfina is a 69 year female patient with a past medical history of diabetes, migraine, possible seizures presenting to the clinic today for trigger point injections. HPI at time of last visit on 05/12/2025: I have seen this patient at [facility] in the past. At the time of our visit together at [facility] in June of 2024, the reviewed her prior workup which included normal EEGs in February of 2022 and in February of 2023. She was however on Vimpat 200 mg twice daily in the plan has been to taper these medications as recommended by Dr. Brewer. 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 MRI imaging of the brain 02/16/2022 was also normal. She had seen me in June of 2024 for headache evaluation with headaches starting years ago on a daily basis described as right-sided occipital and parietal with some shoulder involvement. Headaches were associated with nausea and shaking and spots in her vision. Headaches would last over 4 hours and Nurtec was marginally effective. She was still taking the Vimpat 200 mg which has been recently decreased. Her seizure-like events were in the setting of extreme stress and during this office visit, I was able to elicit a similar response with hyperventilation. I had recommended tapering down on the lacosamide and to start a trial of topiramate 50 mg at bedtime for headache. It appeared however that she tried the topiramate which caused dizziness and it was self-discontinued. She saw Dr. Kline in January of 2025 at which time she had experienced some episodes of decreased level of awareness and CT head was negative for acute intracranial bleeding and CTA showed no large vessel occlusion or high degree of stenosis. It was determined that stroke or seizure activity were both very unlikely and that more than likely her symptoms work behavioral. She is here today to establish care. She tells me that she is here today for management of her epilepsy. She tells me that she continues to take vimpat 200mg twice daily. She tells me that she continues to have seizure episodes occurring 3 times per week but she can sometimes go 2 months without them. She describes them as shaking episodes when she bites her tongue. She is sometimes aware when she has these episodes. She also notes memory difficulty and extreme forgetfullness. She tried the topiramate but it caused dizziness and she self discontinued this medication. She continues to have daily pulsating right sided headaches to the occipital area radiating in the the neck and right shoulder. She is taking temazepam at bedtime and reports that her sleep can still be poor. She has tried flezaril in the past but this caused oversedation. Sleep: She does not believe that she has had a sleep study in the past but reports poor sleep quality and snoring. [facility] Medical History (Updated 05/17/25 @ 10:51 by Zahra Loera CNP) Osteoarthritis of knees, bilateral Seizure disorder Migraine without aura Hypertension GERD (gastroesophageal reflux disease) Fibromyalgia Chronic depression Celiac disease Asthma Anxiety Alopecia Review of Systems Const All systems reviewed & are unremarkable except as noted in HPI and below Physical Exam Const General: cooperative, healthy appearing, comfortable and no acute distress Nutritional Appearance: well nourished Orientation/consciousness: patient oriented x3 Limitations: no limitations HEENT Head: Yes normal to inspection and Yes normocephalic Eyes General: appearance normal, both eyes and all related structures Visual Maciel: normal visual maciel by confrontation Alignment and Position: alignment normal Periorbital: periorbital findings normal Eyelids: Yes eyelids normal Conjunctivae: conjunctivae normal Sclerae: sclerae normal Back/Spine/Pelvis Other: Right sided trigger point injection to the upper trapezius area. Neuro General: patient oriented x3, tone normal and deep tendon reflexes 2+ bilaterally Cranial nerves: Yes CN's II-XII intact bilaterally and Yes Facial sensation intact/muscles of mastication intact Cognition (Neuro): normal cognition Gait exam (Neuro): Normal gait present Motor exam (neuro): 5/5 motor strength present throughout and no tremor noted Sensory Exam: double simultaneous stimulation for sensation normal Romberg Test: Negative Pupils: Normal pupillary reactivity/response: bilateral Psych Appearance: grossly normal Affect: Sad affect present (tearful at times) and Animated affect present Attitude: cooperative Insight: Fair insight present (Psych) Judgement: Fair judgement present (Psych) Office Procedures Nerve Block Details: Bilateral Greater Occipital Nerve block procedure: Laterally: Bilateral Indications: Occipital neuralgia Current allergies and current list of medications were reviewed prior to procedure, verbal consent was obtained, procedure was explained in detail to the patient prior to starting. Time-out was performed prior to procedure. Following universal hygiene protocols, patient's left occipital area was located by drawing a line between the external occipital protuberance and the mastoid process. The greater occipital nerve was located approximately 2/3 along this class a lineman to the occiput, and corresponded with the point of maximum tenderness. Alcohol was applied topically to the skin. A 27 gauge needle (aspirating during insertion) was inserted at a 45 degree angle until just above the periosteum. The providers selected agent (s)/medications (as documented in this note) were injected on the left side (directing needle to center, left and right of painful focus any fanning technique). Pressure with gauze pad was held briefly upon the site of puncture to minimize bleeding and to further spread anesthetic subcutaneously. The procedure was repeated on the right side. The patient was monitored for 15 minutes after the procedure and no complications were observed. Post procedure care was reviewed with the patient including application of ice intermittently to the injection sites over the course of the day to reduce inflammation. CPT: 92739-Hfibfca Occipital Procedure code (CPT) selection complete Therapeutic Injection Therapeutic Injection Details: Trigger point injection procedure: Laterally:Bilateral Indications: Chronic headaches, myofascial pain Following universal hygiene protocol, after explaining the risks and benefits as well as hazards of the procedure to the patient, consent was signed and placed in the chart. Time-out prior to starting the procedure was performed. The areas over the bilateral uppper trapezius were cleansed with alcohol. 1 Sites in each trapezius muscle injected with a 27 gauge 1.5 in needle with myofascial spasm. Patient tolerated the procedure well, localized bleeding was controlled. Patient monitored in the clinic for 15 minutes for complications. Patient was discharged home with instructions to apply ice to the back of their head as needed. 18335-Qusobbo Point Injection 1 or 2 sites All charges added?: Procedure code (CPT) selection complete Office Meds bupivacaine (PF) 0.5 % (5 mg/mL) injection solution Performing Provider: Zahra Loera CNP Performing Location: [facility] Neurology [facility] Sleep-[facility] Administered by: Zahra Loera CNP on 05/17/25 10:51 Dose Route Admin Location Dispensed Lot Number Expiration Date [facility] Cloth Colors Examiner 4 mL Infiltration 10 mL [id number] [employer] Total Dispensed Waste 10 mL 60 % bupivacaine (PF) 0.5 % (5 mg/mL) injection solution Performing Provider: Zahra Loera CNP Performing Location: [facility] Neurology and Sleep-Hol Administered by: Zahra Loera CNP on 05/17/25 10:48 Dose Route Admin Location Dispensed Lot Number Expiration Date [facility] Cloth Colors Examiner 2 mL Infiltration 10 mL [id number] [employer] Total Dispensed Waste 10 mL 80 % Assessment & Plan Assessment & Plan (1) Non-epileptic convulsion: Code(s): R56.9 - Unspecified convulsions Category: Medical (2) Right-sided headache: Code(s): R51.9 - Headache, unspecified Category: Medical (3) Poor sleep: Code(s): Z72.820 - Sleep deprivation Category: Medical (4) Concern about memory: Code(s): R41.89 - Other symptoms and signs involving cognitive functions and awareness Category: Medical (5) Fatigue: Code(s): R53.83 - Other fatigue Category: Medical (6) Muscle pain, myofascial: Code(s): M79.18 - Myalgia, other site Category: Medical (7) Trigger point of shoulder region: Code(s): M25.519 - Pain in unspecified shoulder Category: Medical (8) Occipital neuralgia: Code(s): M54.81 - Occipital neuralgia Category: Medical Plan Delfina is a 69 year female patient with a past medical history of diabetes, migraine, possible seizures presenting to the clinic today for trigger point injections. Assessment and Plan per last visit: Seizure episodes: Continues to have relatively frequent seizure-like episodes on Vimpat 200 mg twice daily. The goal in the past has been to reduce the dose as her EEGs have been normal and has been suggestive of PNES. My prior evaluation at [facility] also revealed reproduction of her symptoms with hyperventilation causing panic attack in the office. I am recommending that we dropped on the Vimpat to 100 mg twice daily to see if we can reduce some of her other symptoms including imbalance, memory concerns, and dizziness as well as fatigue. Sleep: Reports that her sleep is very poor. It is not clear whether or not she snores but she does have very fragmented sleep. I am recommending a sleep study to evaluate for TAYO which can cause changes in memory as well as fatigue. Headaches: She continues to have right-sided headaches with some obvious trigger points on exam of the right trapezius muscle. I am recommending trigger point injections as to not add to her polypharmacy/daily medication intake. The -taper down on vimpat to 100mg twice daily -sleep study in-lab -Right trapezius trigger points - PA needed Trigger points and occipital nerve blocks given during today's visit. I will have her return in 1 month for repeat trigger point injectios/evaluation. Orders: Orders AMB Trigger Point Injection Today M25.519 - Pain in unspecified shoulder, M79.18 - Myalgia, other site, R51.9 - Headache, unspecified AMB Nerve Block Today M54.81 - Occipital neuralgia Coding Level of Care Code Est Pt Level 1 (49040) Diagnoses Non-epileptic convulsion R56.9 Right-sided headache R51.9 Poor sleep Z72.820 Concern about memory R41.89 Fatigue R53.83 Muscle pain, myofascial M79.18 Trigger point of shoulder region M25.519 Occipital neuralgia M54.81 CPT Codes Nerve Block - CPT: 16373-Ygmnahg Occipital ([id number]) Therapeutic Injection - Ther Injection 1: 82380-Cvffvgw Point Injection 1 or 2 sites ([id number])
[2025-05-17 10:26] VITALS: BP 112/70; PULSE 83; RESP 16; O2SAT 100; BMI 27.1
--- OUTSIDE RECORDS SUMMARY | 2025-05-17 11:38 | XMS_ITS | Encounter Summary ---
Author Organization [facility] Address [address] [place] [address] Care Team Providers Care Balance Recesser Name Role Phone Sylvie Nunez MD Primary Care Provider Sofi Motley MD Primary Care Provider Encounter Details Date Type Department Care Team ([facility] st Contact Info) Description 04/21/2019 Scanned Document GENERIC EXTERNAL DATA DEPARTMENT Sylvie Nunez MD [address] [place] [address] Social History Tobacco Use Types Packs/Day Years [...] on filedocumented in this encounter Care Teams Balance Recesser Relationship Specialty Start Date End Date Sylvie Nunez MD [address] [place] [address] PCP - General Internal Medicine 04/01/19 09/20/20 Sofi Motley MD [address] [place] [address] PCP - General Internal Medicine 09/21/20 documented as of this encounter
--- OUTSIDE RECORDS SUMMARY | 2025-05-17 11:38 | XMS_ITS | Encounter Summary ---
Author Organization [facility] Address [address] [place] [address] Care Team Providers Care Food Bagging Machine Operator Name Role Phone Sylvie Nunez MD Primary Care Provider Sofi Motley MD Primary Care Provider [phone] Encounter Details Date Type Department Care Team (Late st Contact Info) Description 07/01/2020 Scanned Document GENERIC EXTERNAL DATA DEPARTMENT Sofi Motley MD [address] [place] [address] Social History Tobacco Use Types Packs/Day Years [...] on filedocumented in this encounter Care Teams Food Bagging Machine Operator Relationship Specialty Start Date End Date Sylvie Nunez MD [address] [place] [address] PCP - General Internal Medicine 04/01/19 09/20/20 Sofi Motley MD [address] [place] [address] PCP - General Internal Medicine 09/21/20 documented as of this encounter
--- OUTSIDE RECORDS SUMMARY | 2025-05-17 11:38 | XMS_ITS | Encounter Summary ---
Author Organization [facility] Address [address] [place] [address] Care Team Providers Care Valve Mechanic Name Role Phone Sofi Motley MD Primary Care Provider [phone] Encounter Details Date Type Department Care Team (Late st Contact Info) Description 09/21/2020 Scanned Document [facility] Medical [facility] Rheumatology [place] [address] [facility] [address] [place] [address] Chase Coronado MD [address] [place] [address] Social History Tobacco Use Types Packs/Day Years [...] on filedocumented in this encounter Care Teams Valve Mechanic Relationship Specialty Start Date End Date Sofi Motley MD [address] [place] [address] PCP - General Internal Medicine 09/21/20 documented as of this encounter
--- OUTSIDE RECORDS SUMMARY | 2025-05-17 11:38 | XMS_ITS | Encounter Summary ---
Author Organization [facility] Address [address] [place] [address] Care Team Providers Care Resolution Analyst Name Role Phone Sofi Motley MD Primary Care Provider [phone] Encounter Details Date Type Department Care Team (Late st Contact Info) Description 09/01/2021 Scanned Document [facility] [address] [facility] [address] [place] [id number] Winston Higginbotham MD [address] [place] [address] [place] [address] Social History Tobacco Use Types Packs/Day Years [...] on filedocumented in this encounter Care Teams Resolution Analyst Relationship Specialty Start Date End Date Sofi Motley MD [address] [place] [address] PCP - General Internal Medicine 09/21/20 documented as of this encounter
--- OUTSIDE RECORDS SUMMARY | 2025-05-17 11:38 | XMS_ITS | Encounter Summary ---
Author Organization [facility] Address [address] [place] [address] Care Team Providers Care Healthcare Financial Analyst Name Role Phone Sofi Motley MD Primary Care Provider Encounter Details Date Type Department Care Team (Late st Contact Info) Description 09/12/2021 Scanned Document GENERIC EXTERNAL DATA DEPARTMENT Lulu Middleton MD [address] [place] [address] Social History Tobacco Use Types Packs/Day Years [...] on filedocumented in this encounter Care Teams Healthcare Financial Analyst Relationship Specialty Start Date End Date Sofi Motley MD [address] [place] [address] PCP - General Internal Medicine 09/21/20 documented as of this encounter
--- OUTSIDE RECORDS SUMMARY | 2025-05-17 11:38 | XMS_ITS | Encounter Summary ---
Author Organization [facility] Address [address] [place] [address] Care Team Providers Care Bistro Attendant Name Role Phone Sofi Motley MD Primary Care Provider [phone] Encounter Details Date Type Department Care Team (Late st Contact Info) Description 09/21/2020 Scanned Document [facility] Medical [facility] Rheumatology [place] [address] [facility] [address] [place] [address] Chase Coronado MD [address] [place] [address] Social History Tobacco Use Types Packs/Day Years [...] on filedocumented in this encounter Care Teams Bistro Attendant Relationship Specialty Start Date End Date Sofi Motley MD [address] [place] [address] PCP - General Internal Medicine 09/21/20 documented as of this encounter
--- OUTSIDE RECORDS SUMMARY | 2025-05-17 11:38 | XMS_ITS | Clinical Summary ---
Author Organization [facility] Address [address] [place], [place] [id number] Phone Care Team Providers Care Order Caller Name Role Phone Sylvie Nunez MD Primary [...] file Group ID:Not on file Type:Medicaid Address: [facility] [address] [id number] Care Teams Order Caller Relationship Specialty Start Date End Date Sylvie Nunez MD PCP - General 05/03/19 Additional Source Comments The information contained in this document represents components of the legal health record. It is not the complete legal health record.[facility]
--- OUTSIDE RECORDS SUMMARY | 2025-05-17 11:38 | XMS_ITS | Clinical Summary ---
Author Organization [facility] it Address [address] [place] [address] Care Team Providers Care Help Desk Support Name Role Phone Unavailable Primary Care Provider [...]
--- OUTSIDE RECORDS SUMMARY | 2025-05-17 11:38 | XMS_ITS | Encounter Summary ---
Author Organization [facility] Address [address] [place] [address] Care Team Providers Care Steam Heating Installer Name Role Phone Sofi Motley MD Primary Care Provider [phone] Encounter Details Date Type Department Care Team (Late st Contact Info) Description 11/03/2020 Scanned Document [facility] [address] [phone] Provider, Generic External Data Social History Tobacco [...] on filedocumented in this encounter Care Teams Steam Heating Installer Relationship Specialty Start Date End Date Sofi Motley MD [address] [place] [address] PCP - General Internal Medicine 09/21/20 documented as of this encounter
--- OUTSIDE RECORDS SUMMARY | 2025-05-17 11:38 | XMS_ITS | Encounter Summary ---
Author Organization [facility] Address [address] [place] [address] Care Team Providers Care Hatchery Worker Name Role Phone Sofi Motley MD Primary Care Provider Encounter Details Date Type Department Care Team (Late st Contact Info) Description 09/21/2020 Scanned Document [facility] Medical [facility] Rheumatology [place] [address] [facility] [address] [place] [address] Chase Coronado MD [address] [place] [address] Social History Tobacco Use Types Packs/Day Years [...] on filedocumented in this encounter Care Teams Hatchery Worker Relationship Specialty Start Date End Date Sofi Motley MD [address] [place] [address] PCP - General Internal Medicine 09/21/20 documented as of this encounter
--- OUTSIDE RECORDS SUMMARY | 2025-05-17 11:38 | XMS_ITS | Clinical Summary ---
Author Organization [facility] Address [address] [place] [address] Care Team Providers Care Consulting Nurse Name Role Phone Sofi Motley MD Primary Care Provider [phone] Allergies Active Allergy Reactions Criticality Noted Date [...] 02/03/20 20 Active Lancets (OneTouch Delica Plus [id number]) Misc TEST BLOOD SUGAR TID. 04/11/20 Active [...] NEEDED. 450 tablet 1 05/22/20 21 Active mmmkwe-vmeejdrax-r agnesium sulfates (Suprep Bowel Prep Kit) 17.5-3.13-1.6 [...] Most Recently Relevant to Health Maintenance Insurance Care Teams Consulting Nurse Relationship Specialty Start Date End Date Sofi Motley MD [address] [place] [address] PCP - General Internal Medicine 09/21/20
--- OUTSIDE RECORDS SUMMARY | 2025-05-17 11:38 | XMS_ITS | Encounter Summary ---
Author Organization [facility] Address [address] [place] [address] Care Team Providers Care Surveyor Rod Helper Name Role Phone Sofi Motley MD Primary Care Provider [phone] Encounter Details Date Type Department Care Team (Late st Contact Info) Description 06/02/2021 Scanned Document [facility] [address] [facility] [address] [place] [address] Winston Higginbotham MD [address] [facility] [address] [place] [address] Social History Tobacco Use Types Packs/Day Years [...] on filedocumented in this encounter Care Teams Surveyor Rod Helper Relationship Specialty Start Date End Date Sofi Motley MD [address] [place] [address] PCP - General Internal Medicine 09/21/20 documented as of this encounter
--- OUTSIDE RECORDS SUMMARY | 2025-05-17 11:38 | XMS_ITS | Data Portability ---
Author Organization [facility] Jose Francisco Alberto [facility], [facility] Address [address] [place] [address] Care Team Providers Care Computer Methods Analyst Name Role Phone [facility] Primary Care Provider Assessment Encounter Date Assessment Date Assessment LastModified by Organization Details LastModified Time 03/17/2024 03/17/2024 I am seeing the patient today under the supervision of Dr. Mcmahan who was available but did not see the patient HISTORY OF PRESENT ILLNESS: Delfina is a 68-year-old Romanian-speaking diabetic woman who is over 2 years [...] 2 months ago and had x-rays through [facility] in late December, which were negative for fracture. I am seeing her today with a virtual job tracer. Clinical update: Patient presents to clinic today [...] 1 A1c. To note patient is primarily Romanian-speaking and the use of an bus info consultant was utilized during this service today. Past [...] Endstage Osteoarthritis HISTORY: The patient is primarily Romanian-speaking and seen with the benefit of the digital bus info consultant. Patient is a 68-year-old female who presents [...] and lucid. Normal insight, affect, and grooming. 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 No spasticity [...] X-rays ordered, obtained, and reviewed today on [facility] PACS: Weight bearing AP of Both knees, [place] view of Both Knees, [place] View of Both Knees, and Lateral of the Left; demonstrate severe end-stage osteoarthritis of the Left knee. There is ocjb-wq-rqve articulation laterally, subchondral sclerosis, osteophyte formation. There [...] to answer all of the patient's questions. [facility] speech recognition lace machine operator software was used to create portions of this document. An attempt at proofreading has been made to minimize errors. Please call for corrections. [email or web address] Not available 06/10/2024 15:11:27 Plan of Treatment [...] left knee. Dr. Recinos's protocol. 2023 024 [email or web address] [facility] Office, [address], [address], [place], [address], 07/02/2024 11:47:50 XR, ankle, 3 or more view - new pt 3 views bilateral ankle wb rm 101 2023 024 [email or web address] [facility] Office, [address], [address], [place], [address], 04/07/2024 14:59:38 Medication Orders None recorded. Patient [...] a4ajBk vP9nXo QUaueC m3YtLR FvZlgJ JJ8mAn HZtai3 4w2795 AC0Kqa nWEUKS hKiQtr MwF INTERFACE [facility] [address] [facility] [address] [address], [place], [address], 03/17/2024 14:05:08 03/17/20 24 03/17/2024 XR, ankle , 3 or more view [email or web address] ?Encry pted=s hAaTro YD8dLq bEUv6g %2BXZw aYqtaq 0bqfl% 2Fg9IQ a4ajBk vP9nXo QUaueC m3YtLR FvZl [facility] HZtai3 0s1359 AC0Kqa nWEUKS hKiQtr MwF [facility]FACE [facility] [address] [address], [place], [address], 03/17/2024 14:05:10 06/10/20 24 06/10/2024 XR, knee, 4 or more view [email or web address] ?Encry pted=s hAaTro YD8dLq bEUv6g %2BXZw aYqtaq 0bqfl% 2Fg9IQ a4ajBk vP9nXo QUaueC m3YtLR FvZl JJ8mAn HZtai3 2i9140 AC0Kqb nmEVqq nKiQtr MwF INTERFACE [facility] [address] [facility] [address], [place], [address], 06/10/2024 14:19:56 06/10/20 24 06/10/2024 XR, knee, 4 or more view [email or web address] ?Encry pted=s hAaTro YD8dLq bEUv6g %2BXZw aYqtaq 0bqfl% 2Fg9IQ a4ajBk vP9nXo QUaueC m3YtLR FvZlJ JJ8mAn HZtai3 2k0596 AC0Kqb nmEVqq nKiQtr MwF INTERFACE [facility] Office [address] [facility] [address], [place], [address], 06/10/2024 14:19:58 Result Notes Documentation Provider Name and Address Organization Details Recorded Time Xr, Ankle, 3 Or More View : [email or web address] Encrypted=hpXdOspDV0rOckK Uv6g%2UXZvpOajma9athz%2Fg 0YQl8hwFopJ9yYcHRssdDe8La XIRnFbbABC9hKdVBney71l370 8TX6MjazQYTEErUrYpwOwD Not Available [facility] 03/17/2024 14:05: 09 Xr, Ankle, 3 Or More View : [email or web address] Encrypted=evLdExgJC8tQjgF Uv6g%4HBSeoPslzm7vmiu%2Fg 9PBu6ruCjvC5mVbHHzefAl1Kr KNHoEbhEGC5wIeRFonm78n022 5CL6RfxiROTWYcMhNscPlQ Not Available [facility] 03/17/2024 14:05: 11 Xr, Knee, 4 Or More View : [email or web address] Encrypted=juBlNbjHI0tDrsF Uv6g%2FSHqiRvseg5bxuz%2Fg 0PVz9jsWqhF1hKzFCmrhHn1Hn DWFgUfkDIJ6sFuYIpap16h329 1IR1HbdhnRRhhgVqLzjGfS Not Available [facility] 06/10/2024 14:19: 57 Xr, Knee, 4 Or More View : [email or web address] Encrypted=fdHqSqiUJ5bUxkV Uv6g%0ITJkpTofrc7etah%2Fg 8KXs6ylEkfZ3mDsOWtncQg9Wj AYJtMxmINN9nYwKSabq27j825 9MO2YwzdfQFakcRlHwnNnU Not Available [facility] 06/10/2024 14:19: 58 Problems Name Problem SNOMED Code Status Onset Date Resolution Date Notes Provider Name and Address Organization Details Recorded Time No complaints 325107889 Active Status : 'A'; Not Available [facility] 4 09:25:04 Osteoarthr itis of left knee joint 2180935645680 09 Active 2023 Errol Recinos MD [address], [place], [address] , [facility] 4 12:46:16 Problem Notes None recorded. Procedures Surgical History Date Name Laterality Status Provider Name and Address Organization Details Recorded Time 5 90144 Therapeutic Exercise (1:1) cancelled Tg Martines DPT [address], [place], [address], [facility] 07/13/2024 08:12:57 5 00819: Low complexity PT Eval cancelled Tg Martines DPT [address], [place], [address], [facility] 07/13/2024 08:12:57 4 Euflexxa Knee Injection completed Gurinder Zimmerman PA-C [address], [place], [address], [facility] 03/17/2024 20:53:11 4 Euflexxa Knee Injection completed Gurinder Zimmerman PA-C [address], [place], [address], [facility] 03/10/2024 21:03:12 4 Euflexxa Knee Injection completed Gurinder Zimmerman PA-C [address], [place], [address], [facility] 03/05/2024 08:05:40 4 Knee Kenalog 40mg 2cc Injection, L/R completed Gurinder Zimmerman PA-C [address], [place], [address], [place] [facility] 11/01/2023 11:15:10 Imaging Results None recorded. Procedure Notes None recorded. Medical Equipment None Reported. Allergies Allergen ID Allergen Name Allergen Category Reaction Reaction Severity Criticality Documentation Date Start Date Code Code System Note Provider Name and Address Organization Details Recorded Time 69649 meloxicam medicatio n Not available Not available Not available 08/26/20232021 05556 RxNorm Not Available [facility] 11:53:30 75287 Reglan medicatio n Not available Not available Not available 08/26/20232021 9230 RxNorm Not Available [facility] 11:53:30 Medications Name Sig Start Date Stop [...] Updated DateTime 03/05/2024 170.18 cm 26.9 kg/m2 54675.89 g Guerrero Qiu [facility] 03/05/2024 13:34:49 Date Recorded Body height Body mass index (BMI) Body weight Provider Name and Address Organization Details Last Updated DateTime 03/11/2024 170.18 cm 26.9 kg/m2 71408.89 g Guerrero Qiu [facility] 03/11/2024 13:59:42 Date Recorded Body height Body mass index (BMI) Body weight Provider Name and Address Organization Details Last Updated DateTime 03/17/2024 170.18 cm 26.9 kg/m2 26726.89 g Irene Fatima [facility] 03/17/2024 13:58:22 Date Recorded Body height Body mass index (BMI) Body weight Provider Name and Address Organization Details Last Updated DateTime 03/18/2024 170.18 cm 26.9 kg/m2 71114.89 g Gurinder Zimmerman PA-C [address], [place], [address], [place] [facility] 03/18/2024 09:44:01 Date Recorded Body height Body mass index (BMI) Body weight Provider Name and Address Organization Details Last Updated DateTime 06/10/2024 165.1 cm 28.9 kg/m2 87822.35 g Tez Mancia [facility] 06/10/2024 14:02:09 Social History None recorded. Functional Status None recorded. Mental Status None recorded. Family History Nothing Reported. Medical History No medical history recorded. Gynecological HistoryNo gynecological history recorded. Obstetrics History GPAL:G 0 P 0 0 0 0 Past Encounters Encounter ID Performer Location Encounter Start Date Encounter Closed Date Diagnosis/Indication Diagnosis SNOMED-CT Code Diagnosis ICD10 Code Diagnosis IMO Codes Diagnosis Note [id number] Gurinder Zimmerman PA-C [facility] [address] [place] [address] 11/01/2023 10:44:23 11/01/2023 11:17:42 Pain of left knee joint 4688801295 96046 M25.562 Osteoarthr itis of left knee joint 7374772708 30750 M17.12 [id number] Fernando Mcmahan MD [facility] [address] [place] [address] 02/06/2024 12:09:37 03/03/2024 10:42:43 Pain associated with internal prosthetic device 947648167 T84.84XA Follow-up orthopedic assessment 409196196 Z47.89 [id number] CHIOMA Galvez [address] [place] [address] 03/05/2024 13:12:11 03/05/2024 15:05:53 Osteoarthritis of left knee joint 6904653633 98419 M17.12 [id number] CHIOMA Galvez [address] [place] [address] 03/11/2024 13:47:47 03/11/2024 16:12:09 Osteoarthritis of left knee joint 4499179569 48997 M17.12 [id number] CHIOMA Johnson [address] [place] [address] 03/17/2024 13:08:28 04/07/2024 14:59:38 Bilateral ankle joint pain 3475732149 6251134 M25.571 M25.416 [id number] CHIOMA Galvez [address] [place] [address] 03/18/2024 09:39:54 04/08/2024 08:32:33 Osteoarthritis of left knee joint 4306559534 23514 M17.12 [id number] MD Jaime Stockton [address] [place] [address] 06/10/2024 13:23:03 07/02/2024 11:47:49 Osteoarthritis of left knee joint 1073563464 88305 M17.12 [id number] Health Concerns Section Related Observation LastModified by Organization Detai ls LastModified Time None Recorded Concern Status LastModified by Organization Details LastModified Time None Recorded Advance Directives Directive None Recorded Payers Insurance Date Sequence Insurance Name Policy Number Policy Arredondo Covered Member ID Arredondo Member ID Guarantor Name 03/04/2024 1 [place] [employer] Delfina Hewitt [id number] Delfina Andrade 03/04/2024 1 [place] [facility] Delfina Hewitt [id number] Delfina Andrade 07/27/2024 1 [facility] - DOS ON OR AFTER 2022 - ONE CARE (MEDICARE REPLACEMENT/AD VANTAGE - HMO) Delfina Hewitt [id number] Delfina Andrade OBGyn Episode No OBEpisode recorded.
== END 2025-05-17 10:55 | disposition home or self-care (01) ==
LOC: HO.HSM 09:50
PROVIDERS: Visit Provider Nurse Practitioner
DX: R56.9 Unspecified convulsions (principal); R51.9 Headache, unspecified; Z72.820 Sleep deprivation; R41.89 Other symptoms and signs involving cognitive functions and awareness; R53.83 Other fatigue; M79.18 Myalgia, other site; M25.519 Pain in unspecified shoulder; M54.81 Occipital neuralgia
CPT/HCPCS: 20552; 64405

== ENCOUNTER → 2025-05-17 09:50 | Outpatient (BNVA) | payer OTHER, SELFPAY | PROVIDERS: Visit Provider Nurse Practitioner | DX: M54.81 Occipital neuralgia (principal); M79.18 Myalgia, other site; Z72.820 Sleep deprivation; R41.89 Other symptoms and signs involving cognitive functions and awareness; R53.83 Other fatigue; M25.519 Pain in unspecified shoulder; R56.9 Unspecified convulsions | CPT/HCPCS: 20552; 64405; 99211; J0665 ==